=== PATIENT | male | born 1940 | race African-American/Black ===

== ENCOUNTER 2018-11-05 11:59 | Emergency (ER) | payer MEDICARE, MEDICAID ==
[~2018-11-05] VITALS: Ht 180.3 cm; Wt 53.0 kg
[2018-11-05] MEDS ORDERED: SODIUM CHLORIDE 0.9% 500 ML IV ONE (14:30)
[2018-11-05 14:59] LABS: BASOPHILS % 0.3 % (0.0-2.0); EOSINOPHILS % 1.8 % (0.0-5.0); HEMATOCRIT. 37.4 % (42.0-52.0); HEMOGLOBIN. 12.4 g/dL (14.0-18.0); LYMPHOCYTES % 27.6 % (20.0-50.0); MEAN CORPUSCULAR HEMOGLOBIN 29.8 pg (28.0-32.0); MEAN CORPUSCULAR VOLUME 89.4 fL (80.0-94.0); MEAN PLATELET VOLUME 8.1 fl (7.4-10.4); NEUTROPHILS % 59.3 % (40.0-76.0); PLATELET 203 x1000/uL (130-400); RED BLOOD CELL COUNT 4.18 mill/uL (4.7-6.1); RED CELL DISTRIBUTION WIDTH 12.3 % (11.6-14.6)
[2018-11-05 15:03] LABS: CHLORIDE 106 mEq/L (98-107)
[2018-11-05 19:15] VITALS: BP 140/68
== END 2018-11-05 19:57 | disposition home or self-care (01) ==
LOC: ER 11:59
DX: K59.00 Constipation, unspecified (principal); R53.1 Weakness; I10 Essential (primary) hypertension; Z90.89 Acquired absence of other organs
CPT/HCPCS: 36415; 71045; 74021; 80053; 83690; 83880; 84484; 85025; 93005; 99284; J7040

== ENCOUNTER 2022-02-26 10:18 | Inpatient (IN) | payer MEDICARE, MEDICAID ==
[~2022-02-26] VITALS: Ht 180.3 cm; Wt 53.7 kg
[2022-02-26] MEDS ORDERED: DEXL60CA6 PO (10:29)
[2022-02-26] MEDS ORDERED: DILT240C96 PO (10:29)
[2022-02-26] MEDS ORDERED: MEGE40TA5 PO (10:29)
[2022-02-26] MEDS ORDERED: LINA145C PO (10:29)
[2022-02-26] MEDS ORDERED: SIMV10TA97 PO (10:29)
[2022-02-26] MEDS ORDERED: ALBUTEROL (10:29)
[2022-02-26] MEDS ORDERED: CLON0.1T PO (10:29)
[2022-02-26] MEDS ORDERED: METH-817 MT (10:29)
[2022-02-26] MEDS ORDERED: LANS30CA55 PO (10:29)
[2022-02-26] MEDS ORDERED: OMEP20CA14 PO (10:29)
[2022-02-26] MEDS ORDERED: IBUPROFEN 600MG TABLET PO STA (10:38)
[2022-02-26 11:29] LABS: CHLORIDE 103 mEq/L (98-107)
[2022-02-26 11:35] LABS: BASOPHILS % 0.7 % (0.0-2.0); EOSINOPHILS % 3.6 % (0.0-5.0); HEMATOCRIT. 32.2 % (42.0-52.0); HEMOGLOBIN. 10.3 g/dL (14.0-18.0); LYMPHOCYTES % 20.1 % (20.0-50.0); MEAN CORPUSCULAR HEMOGLOBIN 28.1 pg (28.0-32.0); MEAN PLATELET VOLUME 9.5 fl (7.4-10.4); MONOCYTES % 9.6 % (2.0-8.0); PLATELET 217 x1000/uL (130-400); RED BLOOD CELL COUNT 3.66 mill/uL (4.7-6.1); RED CELL DISTRIBUTION WIDTH 14.4 % (11.6-14.6)
[2022-02-26 11:42] LABS: CLARITY URINE CLEAR (CLEAR); COLOR URINE DARK YELLOW (YELLOW); KETONES URINE TRACE (NEGATIVE); LEUKOCYTE ESTERASE URINE TRACE (NEGATIVE); NITRITE URINE NEGATIVE (NEGATIVE); OCCULT BLOOD URINE NEGATIVE (NEGATIVE); PROTEIN URINE 2+ (NEGATIVE); SPECIFIC GRAVITY URINE 1.024 (1.005-1.030)
[2022-02-26] MEDS ORDERED: TRAMADOL 50MG TABLET PO STA (14:50)
[2022-02-26] MEDS ORDERED: IOHEXOL-300 100 ML BOTTLE ONE (16:59)
[2022-02-26 18:38] LABS: HEPATITIS B SURFACE ANTIGEN NEGATIVE
[2022-02-26] MEDS ORDERED: NALOXONE HCL 0.4MG/ML VIAL IV PRN (19:00)
[2022-02-26] MEDS ORDERED: ONDANSETRON HCL 4MG/2ML INJ IV PRN (19:00)
[2022-02-26] MEDS: AMLODIPINE 10MG TABLET PO SCH (19:00)
[2022-02-26 20:00] VITALS: BP 130/90
[2022-02-27] VITALS: BP 144/65
[2022-02-27] MEDS: HYDROCODONE/ACETAMINOPHEN 10/325MG TABLET PO PRN ×2 (01:50→09:33)
[2022-02-27 04:00] VITALS: BP 127/56
[2022-02-27 08:00] VITALS: BP 134/63
[2022-02-27] MEDS ORDERED: CEFTRIAXONE 1 G PREMIX 50 ML IV SCH (09:00)
[2022-02-27] MEDS ORDERED: ACETAMINOPHEN 325MG TABLET PO PRN (09:00)
[2022-02-27] MEDS ORDERED: ONDANSETRON HCL 4MG/2ML INJ IV PRN (09:00)
[2022-02-27] MEDS ORDERED: FAMOTIDINE 20MG TABLET PO SCH (09:00)
[2022-02-27] MEDS ORDERED: MAGNESIUM/ALUMINUM HYDROXIDE/SIMETHICONE 30ML UDC PO PRN (09:00)
[2022-02-27] MEDS ORDERED: CLONIDINE 0.1MG TABLET PO PRN (09:00)
[2022-02-27] MEDS: AMLODIPINE 10MG TABLET PO SCH (09:24)
[2022-02-27] MEDS ORDERED: ENOXAPARIN 40MG/0.4ML SYR SUBCUT SCH (10:00)
[2022-02-27 12:00] VITALS: BP 101/59
[2022-02-27] MEDS: METHADONE HCL 10MG TABLET PO SCH (14:03)
[2022-02-27] MEDS: CEFTRIAXONE 1,000 MG in DEXTROSE 5% WATER 50 ML IV SCH (14:23)
[2022-02-27] MEDS ORDERED: BISACODYL 5MG TABLET PO NR (15:30)
[2022-02-27 16:00] VITALS: BP 93/66
[2022-02-27 18:27] LABS: INR 1.3; PROTHROMBIN TIME 13.6 sec (9.6-11.0)
[2022-02-27 18:38] LABS: CHLORIDE 104 mEq/L (98-107)
[2022-02-27] MEDS ORDERED: SENNOSIDES/DOCUSATE SOD 8.6/50MG TABLET PO SCH (21:00)
[2022-02-28] VITALS (18 sets, daily range): BP systolic 106–168; BP diastolic 51–77
[2022-02-28] MEDS: OMEPRAZOLE 20MG CAPSULE EXTENDED RELEASE PO SCH (07:20)
[2022-02-28 07:35] LABS: BASOPHILS % 0.6 % (0.0-2.0); EOSINOPHILS % 0.6 % (0.0-5.0); HEMATOCRIT. 29.9 % (42.0-52.0); HEMOGLOBIN. 9.7 g/dL (14.0-18.0); LYMPHOCYTES % 16.4 % (20.0-50.0); MEAN CORPUSCULAR HEMOGLOBIN 28.4 pg (28.0-32.0); MEAN CORPUSCULAR VOLUME 87.6 fL (80.0-94.0); MEAN PLATELET VOLUME 9.9 fl (7.4-10.4); NEUTROPHILS % 70.4 % (40.0-76.0); PLATELET 202 x1000/uL (130-400); RED BLOOD CELL COUNT 3.41 mill/uL (4.7-6.1); RED CELL DISTRIBUTION WIDTH 14.6 % (11.6-14.6)
[2022-02-28] MEDS ORDERED: BISACODYL 5MG TABLET PO NR (09:00)
[2022-02-28] MEDS ORDERED: NA PHOS,M-B/NA PHOS,DI-BA ENEMA 118ML PR NR (09:00)
[2022-02-28 09:46] LABS: FERRITIN 1431 ng/mL (22-322)
[2022-02-28] MEDS ORDERED: LIDOCAINE HCL/PF 1% 10 MG/ML 5ML VIAL ONE (10:36)
[2022-02-28] MEDS ORDERED: SODIUM BICARBONATE 4% (2.4MEQ) 5ML VIAL IV ONE (10:36)
[2022-02-28] MEDS ORDERED: FENTANYL CITRATE/PF 50MCG/ML 2ML VIAL ONE (10:36)
[2022-02-28 10:40] LABS: CHLORIDE 106 mEq/L (98-107)
[2022-02-28 10:41] LABS: INR 1.2; PROTHROMBIN TIME 13.1 sec (9.6-11.0)
[2022-02-28 10:44] LABS: VITAMIN B12 SERUM >2000 pg/mL pg/mL (211-911)
[2022-02-28 11:19] LABS: HDL CHOLESTEROL 11 mg/dL (40-59); LDL CHOLESTEROL 61 mg/dL (5-100); PHOSPHORUS 3.1 mg/dL (2.5-4.9); T4 FREE 1.36 ng/dL (0.76-1.46); TOTAL IRON BINDING CAPACITY 490 ug/dL (250-450)
[2022-02-28] MEDS ORDERED: FENTANYL CITRATE/PF 50MCG/ML 2ML VIAL IV ONE (12:15)
[2022-02-28] MEDS ORDERED: FENTANYL CITRATE/PF 50MCG/ML 2ML VIAL IV NR (12:30)
[2022-02-28] MEDS: AMLODIPINE 10MG TABLET PO SCH (13:01)
[2022-02-28] MEDS: CEFTRIAXONE 1,000 MG in DEXTROSE 5% WATER 50 ML IV SCH (13:04)
[2022-02-28] MEDS: METHADONE HCL 10MG TABLET PO SCH (13:04)
[2022-02-28 17:55] LABS: HEMATOCRIT 28.7 % (42.0-52.0); HEMOGLOBIN 9.3 g/dL (14.0-18.0)
[2022-02-28] MEDS: ENOXAPARIN 40MG/0.4ML SYR SUBCUT SCH (19:28)
[2022-03-01] VITALS: BP 139/71
[2022-03-01 04:00] VITALS: BP 134/71
[2022-03-01 08:00] VITALS: BP 151/77
[2022-03-01] MEDS: OMEPRAZOLE 20MG CAPSULE EXTENDED RELEASE PO SCH (09:08)
[2022-03-01] MEDS: AMLODIPINE 10MG TABLET PO SCH (09:08)
[2022-03-01] MEDS: METHADONE HCL 10MG TABLET PO SCH (09:09)
[2022-03-01] MEDS: ENOXAPARIN 40MG/0.4ML SYR SUBCUT SCH (09:10)
[2022-03-01 11:46] LABS: BASOPHILS % 0.7 % (0.0-2.0); EOSINOPHILS % 0.5 % (0.0-5.0); HEMATOCRIT. 31.1 % (42.0-52.0); MEAN CORPUSCULAR HEMOGLOBIN 28.3 pg (28.0-32.0); MEAN CORPUSCULAR VOLUME 87.6 fL (80.0-94.0); MEAN PLATELET VOLUME 9.8 fl (7.4-10.4); MONOCYTES % 12.1 % (2.0-8.0); NEUTROPHILS % 68.7 % (40.0-76.0); PLATELET 213 x1000/uL (130-400); RED BLOOD CELL COUNT 3.55 mill/uL (4.7-6.1); RED CELL DISTRIBUTION WIDTH 14.5 % (11.6-14.6)
[2022-03-01 11:50] LABS: CHLORIDE 105 mEq/L (98-107)
[2022-03-01 12:00] VITALS: BP 114/59
[2022-03-01] MEDS: CEFTRIAXONE 1,000 MG in DEXTROSE 5% WATER 50 ML IV SCH (12:03)
[2022-03-01] MEDS ORDERED: POTASSIUM-SODIUM PHOSPHATE POWDER PACKET PO NR (13:30)
[2022-03-01 16:00] VITALS: BP 135/83
[2022-03-01 20:00] VITALS: BP 130/65
[2022-03-01] MEDS: MIRTAZAPINE 15MG TABLET PO SCH (22:50)
[2022-03-02] VITALS: BP 132/67
[2022-03-02 04:00] VITALS: BP 132/66
[2022-03-02] MEDS: OMEPRAZOLE 20MG CAPSULE EXTENDED RELEASE PO SCH (06:15)
[2022-03-02 08:00] VITALS: BP 146/62
[2022-03-02 08:21] LABS: BASOPHILS % 0.6 % (0.0-2.0); EOSINOPHILS % 0.8 % (0.0-5.0); HEMATOCRIT. 31.8 % (42.0-52.0); HEMOGLOBIN. 10.3 g/dL (14.0-18.0); LYMPHOCYTES % 18.7 % (20.0-50.0); MEAN CORPUSCULAR HEMOGLOBIN 28.4 pg (28.0-32.0); MEAN CORPUSCULAR VOLUME 87.4 fL (80.0-94.0); MEAN PLATELET VOLUME 9.2 fl (7.4-10.4); MONOCYTES % 9.3 % (2.0-8.0); NEUTROPHILS % 70.6 % (40.0-76.0); PLATELET 211 x1000/uL (130-400); RED BLOOD CELL COUNT 3.63 mill/uL (4.7-6.1); RED CELL DISTRIBUTION WIDTH 14.1 % (11.6-14.6)
[2022-03-02] MEDS: METHADONE HCL 10MG TABLET PO SCH (08:36)
[2022-03-02] MEDS: AMLODIPINE 10MG TABLET PO SCH (08:36)
[2022-03-02] MEDS: ENOXAPARIN 40MG/0.4ML SYR SUBCUT SCH (08:36)
[2022-03-02] MEDS: CEFTRIAXONE 1,000 MG in DEXTROSE 5% WATER 50 ML IV SCH (10:14)
[2022-03-02 10:19] LABS: CHLORIDE 107 mEq/L (98-107)
[2022-03-02 12:32] VITALS: BP 143/87
[2022-03-02] MEDS ORDERED: POTASSIUM PHOS,M-BASIC-D-BASIC 10 MMOL in DEXT 5% WATER 246.6667 ML IV NR (13:00)
[2022-03-02 16:00] VITALS: BP 127/87
[2022-03-02 20:00] VITALS: BP 139/84
[2022-03-02] MEDS: MIRTAZAPINE 15MG TABLET PO SCH (21:15)
[2022-03-03] VITALS: BP 139/67
[2022-03-03 04:02] VITALS: BP 141/80
[2022-03-03] MEDS: OMEPRAZOLE 20MG CAPSULE EXTENDED RELEASE PO SCH (05:40)
[2022-03-03 08:00] VITALS: BP 134/75
[2022-03-03 08:01] LABS: BASOPHILS % 0.8 % (0.0-2.0); EOSINOPHILS % 0.8 % (0.0-5.0); HEMATOCRIT. 32.2 % (42.0-52.0); HEMOGLOBIN. 10.6 g/dL (14.0-18.0); MEAN CORPUSCULAR HEMOGLOBIN 28.7 pg (28.0-32.0); MEAN CORPUSCULAR VOLUME 87.5 fL (80.0-94.0); MEAN PLATELET VOLUME 9.4 fl (7.4-10.4); MONOCYTES % 10.7 % (2.0-8.0); NEUTROPHILS % 71.7 % (40.0-76.0); PLATELET 223 x1000/uL (130-400); RED BLOOD CELL COUNT 3.68 mill/uL (4.7-6.1); RED CELL DISTRIBUTION WIDTH 14.4 % (11.6-14.6)
[2022-03-03] MEDS: ENOXAPARIN 40MG/0.4ML SYR SUBCUT SCH (10:06)
[2022-03-03] MEDS: METHADONE HCL 10MG TABLET PO SCH (10:07)
[2022-03-03] MEDS: AMLODIPINE 10MG TABLET PO SCH (10:07)
[2022-03-03] MEDS: CEFTRIAXONE 1,000 MG in DEXTROSE 5% WATER 50 ML IV SCH (10:07)
[2022-03-03 10:58] LABS: CHLORIDE 104 mEq/L (98-107)
[2022-03-03 11:02] LABS: PHOSPHORUS 2.1 mg/dL (2.5-4.9)
[2022-03-03 12:00] VITALS: BP 125/66
[2022-03-03 13:03] VITALS: BP 134/75
[2022-03-03 16:00] VITALS: BP 120/69
== END 2022-03-03 17:55 | disposition home or self-care (01) | DRG 436 ==
LOC: ER 10:18 → EDBEDREQ 13:32 → 6EST 16:04 → EDBEDREQTM 16:13 → EDBEDREQ 16:13 → 6EST 17:27
PROVIDERS: ADMIT Internal Medicine; ATTEND Internal Medicine Nephrology
PROC: 0FB03ZX Excision of Liver, Percutaneous Approach, Diagnostic (ICD-10-PCS; principal; 2022-02-28)
DX: C78.7 Secondary malignant neoplasm of liver and intrahepatic bile duct (principal); E44.0 Moderate protein-calorie malnutrition; F11.20 Opioid dependence, uncomplicated; Z68.1 Body mass index [BMI] 19.9 or less, adult; N39.0 Urinary tract infection, site not specified; D63.1 Anemia in chronic kidney disease; M51.36 Other intervertebral disc degeneration, lumbar region; M47.816 Spondylosis without myelopathy or radiculopathy, lumbar region; E78.5 Hyperlipidemia, unspecified; E80.6 Other disorders of bilirubin metabolism; K59.09 Other constipation; R63.0 Anorexia; R74.01 Elevation of levels of liver transaminase levels; K82.8 Other specified diseases of gallbladder; I12.9 Hypertensive chronic kidney disease with stage 1 through stage 4 chronic kidney disease, or unspecified chronic kidney disease; N18.9 Chronic kidney disease, unspecified; Z87.891 Personal history of nicotine dependence; B19.20 Unspecified viral hepatitis C without hepatic coma
CPT/HCPCS: 36415; 74176; 74177; 76700; 76942; 80048; 80053; 80061; 80076; 81003; 82105; 82140; 82248; 82378; 82607; 82728; 82746; 83540; 83550; 83735; 84100; 84439; 84443; 84484; 85014; 85018; 85025; 85044; 86705; 86709; 86803; 87340; 87426; 88307; 93005; 93970; 97162; 97166; 99285; J0696; J1650; J2405; J3010; J3490; J7060; Q9967

== ENCOUNTER 2022-04-13 07:40 | Inpatient (IN) | payer MEDICARE, MEDICAID ==
[~2022-04-13] VITALS: Ht 172.7 cm; Wt 61.7 kg
[~2022-04-13 07:40] MED LIST: ALBUTEROL; CLON0.1T PO; DEXL60CA6 PO; DILT240C96 PO; LANS30CA55 PO; LINA145C PO; MEGE40TA5 PO; METH-817 MT; OMEP20CA14 PO; SIMV10TA97 PO
[2022-04-13 08:54] LABS: HEMATOCRIT. 23.7 % (42.0-52.0); MEAN CORPUSCULAR HEMOGLOBIN 30.4 pg (28.0-32.0); MEAN CORPUSCULAR VOLUME 102.3 fL (80.0-94.0); RED BLOOD CELL COUNT 2.31 mill/uL (4.7-6.1); RED CELL DISTRIBUTION WIDTH 21.2 % (11.6-14.6)
[2022-04-13 09:13] LABS: CHLORIDE 98 mEq/L (98-107)
[2022-04-13] MEDS ORDERED: SODIUM BICARBONATE 8.4% 1 MEQ/ML 50ML SYR IV ONE ×2 (09:45→12:00)
[2022-04-13] MEDS ORDERED: INSULIN REGULAR (HUMULIN R) 300UNITS/3ML VIAL IV ONE ×2 (09:45→12:00)
[2022-04-13] MEDS ORDERED: DEXTROSE 50% WATER 50ML SYRINGE IV ONE ×2 (09:45→12:00)
[2022-04-13] MEDS ORDERED: CALCIUM GLUCONATE 1,000 MG in DEXT 5% WATER 100 ML IV ONE ×2 (09:45→12:00)
[2022-04-13 10:05] LABS: NUCLEATED RED BLOOD CELLS 1 /100 WBC; PLATELET ESTIMATE NORMAL
[2022-04-13 10:06] LABS: MEAN PLATELET VOLUME 9.3 fl (7.4-10.4); PLATELET 242 x1000/uL (130-400)
[2022-04-13] MEDS ORDERED: SODIUM BICARBONATE 8.4% 1 MEQ/ML 50ML SYR IV NR ×2 (10:15→15:30)
[2022-04-13] MEDS ORDERED: SODIUM CHLORIDE 0.9% 1,000 ML IV ONE ×2 (11:45)
[2022-04-13] MEDS ORDERED: CALCIUM GLUCONATE 1GM PREMIX 50 ML IV NR (12:15)
[2022-04-13] MEDS ORDERED: NOREPINEPHRINE 8 MG in DEXT 5% WATER 242 ML IV STA ×2 (15:18→15:24)
[2022-04-13] MEDS ORDERED: NOREPINEPHRINE 8MG/250ML PMX 250 ML IV ONE ×2 (15:30)
[2022-04-13 15:59] LABS: BG BASE EXCESS -17.7 mmol/L (-2.0-2.0); BG CARBOXYHEMOGLOBIN 2.1 % (0.5-1.5); BG DEOXYHEMOGLOBIN 0.3 % (0.0-5.0); BG HCO3 ACT 12.3 mmol/L (22.0-26.0); BG METHEMOGLOBIN 0.6 % (0.0-1.5); BG OXYGEN SATURATION 99.7 % (92.0-98.5); BG PH 6.982 (7.350-7.450); BG PO2 262.5 mmHg (75.0-100.0); BG SAMPLE SITE RIGHT BRACHIAL; BG TOTAL HEMOGLOBIN 5.9 g/dL (12.0-18.0); BG VENT MODE VENT - AC
[2022-04-13] MEDS: SODIUM BICARBONATE 150 MEQ in DEXTROSE 5% WATER 1,000 ML IV SCH ×2 (16:00→17:51)
[2022-04-13] MEDS ORDERED: MIDAZOLAM HCL 100 MG in DEXT 5% WATER 80 ML IV ONE ×4 (16:30)
[2022-04-13] MEDS ORDERED: MIDAZOLAM HCL 2 MG/2 ML VIAL IV ONE (16:30)
[2022-04-13] MEDS ORDERED: IPRATROPIUM/ALBUTEROL 0.5-3(2.5)MG/3ML NEB HHN PRN (16:45)
[2022-04-13 16:47] LABS: PARTIAL THROMBOPLASTIN TIME 47.4 sec (23.4-31.0); PROTHROMBIN TIME 41.1 sec (9.6-11.0)
[2022-04-13] MEDS ORDERED: VASOPRESSIN 20 UNIT in SODIUM CHLORIDE 0.9% 99 ML IV PRN (17:00)
[2022-04-13] MEDS ORDERED: ALBUMIN HUMAN 12.5GM/50ML (25%) IV NR (17:00)
[2022-04-13 17:14] LABS: INR 4.3
[2022-04-13 19:25] LABS: MEAN CORPUSCULAR HEMOGLOBIN 29.9 pg (28.0-32.0); MEAN CORPUSCULAR VOLUME 101.9 fL (80.0-94.0); PLATELET 136 x1000/uL (130-400); RED BLOOD CELL COUNT 1.75 mill/uL (4.7-6.1)
[2022-04-13 19:32] LABS: CHLORIDE 102 mEq/L (98-107)
[2022-04-13 19:36] LABS: HEMATOCRIT 17.9 % (42.0-52.0); HEMOGLOBIN 5.2 g/dL (14.0-18.0)
[2022-04-13] MEDS ORDERED: NOREPINEPHRINE 8 MG in DEXTROSE 5% WATER 250 ML IV PRN (20:00)
[2022-04-13] MEDS ORDERED: DEXTROSE 50% WATER 50ML SYRINGE IV NR (22:00)
[2022-04-13] MEDS ORDERED: SODIUM POLYSTYRENE SULFONATE 15 G/60 ML BOT PO NR (22:00)
[2022-04-13] MEDS ORDERED: CALCIUM CHLORIDE 1GM/10ML SYR IV NR (22:00)
[2022-04-13] MEDS ORDERED: INSULIN REGULAR (HUMULIN R) 300UNITS/3ML VIAL IV NR (22:00)
[2022-04-14] VITALS (48 sets, daily range): BP systolic 53–110; BP diastolic 32–57
[2022-04-14] MEDS: IPRATROPIUM/ALBUTEROL 0.5-3(2.5)MG/3ML NEB HHN SCH ×2 (01:47→10:12)
[2022-04-14] MEDS ORDERED: ONDANSETRON HCL 4MG/2ML INJ IV PRN (07:15)
[2022-04-14] MEDS ORDERED: MORPHINE SULFATE 2 MG/ML CPJ (NOT FOR IM USE) IV PRN (07:15)
[2022-04-14] MEDS ORDERED: ACETAMINOPHEN 650MG SUPP PR PRN (07:15)
[2022-04-14] MEDS ORDERED: NALOXONE HCL 0.4MG/ML VIAL IV PRN (07:30)
[2022-04-14 08:05] LABS: MEAN CORPUSCULAR HEMOGLOBIN 30.1 pg (28.0-32.0); RED CELL DISTRIBUTION WIDTH 20.4 % (11.6-14.6)
[2022-04-14 08:11] LABS: HEMOGLOBIN 6.3 g/dL (14.0-18.0)
[2022-04-14] MEDS ORDERED: VANCOMYCIN 1G PREMIX 200 ML IV NR (08:30)
[2022-04-14] MEDS ORDERED: PHENYLEPHRINE 100 MG in DEXT 5% WATER 240 ML IV PRN (09:15)
[2022-04-14 09:18] LABS: BG BASE EXCESS -17.3 mmol/L (-2.0-2.0); BG CARBOXYHEMOGLOBIN 2.5 % (0.5-1.5); BG DEOXYHEMOGLOBIN 8.5 % (0.0-5.0); BG FRACTION INSPIRED OXYGEN 40; BG HCO3 ACT 9.3 mmol/L (22.0-26.0); BG METHEMOGLOBIN 0.1 % (0.0-1.5); BG OXYGEN SATURATION 91.3 % (92.0-98.5); BG OXYHEMOGLOBIN 88.9 % (94.0-97.0); BG PCO2 24.5 mmHg (35.0-45.0); BG PH 7.195 (7.350-7.450); BG PO2 74.1 mmHg (75.0-100.0); BG SAMPLE SITE RIGHT RADIAL; BG TOTAL HEMOGLOBIN 6.9 g/dL (12.0-18.0); BG VENT MODE VENT - AC
[2022-04-14] MEDS ORDERED: SODIUM BICARBONATE 8.4% 1 MEQ/ML 50ML SYR IV NR ×2 (09:30→12:15)
[2022-04-14] MEDS ORDERED: SODIUM BICARBONATE 150 MEQ in DEXTROSE 5% WATER 1,000 ML IV SCH (09:30)
[2022-04-14] MEDS ORDERED: PIPERACILLIN/TAZOBACTAM 3.375 G in DEXTROSE 5% WATER 50 ML IV SCH (10:00)
[2022-04-14] MEDS ORDERED: SODIUM BICARBONATE 100 MEQ in DEXTROSE 5% WATER 1,000 ML IV SCH (10:30)
[2022-04-14 11:25] LABS: MEAN CORPUSCULAR HEMOGLOBIN 30.6 pg (28.0-32.0); MEAN CORPUSCULAR VOLUME 98.6 fL (80.0-94.0); RED BLOOD CELL COUNT 1.92 mill/uL (4.7-6.1); RED CELL DISTRIBUTION WIDTH 19.5 % (11.6-14.6)
[2022-04-14 11:30] LABS: HEMATOCRIT. 18.9 % (42.0-52.0); HEMOGLOBIN. 5.9 g/dL (14.0-18.0)
[2022-04-14 11:35] LABS: CHLORIDE 94 mEq/L (98-107)
[2022-04-14 11:57] LABS: PLATELET 83 x1000/uL (130-400)
[2022-04-14 12:01] LABS: PHOSPHORUS 11.7 mg/dL (2.5-4.9)
[2022-04-14] MEDS ORDERED: SODIUM POLYSTYRENE SULFONATE 15 G/60 ML BOT PO NR (12:15)
[2022-04-14] MEDS ORDERED: DEXTROSE 50% WATER 50ML SYRINGE IV NR (12:15)
[2022-04-14] MEDS ORDERED: INSULIN REGULAR (HUMULIN R) 300UNITS/3ML VIAL IV NR (12:15)
[2022-04-14] MEDS ORDERED: CALCIUM GLUCONATE 1GM PREMIX 50 ML IV NR (13:30)
[2022-04-14 13:34] LABS: PLATELET ESTIMATE DECREASED
[2022-04-14 13:35] LABS: MEAN PLATELET VOLUME 9.4 fl (7.4-10.4); PLATELET 63 x1000/uL (130-400)
[2022-04-14] MEDS ORDERED: PANTOPRAZOLE SODIUM 40 MG/VIAL IV SCH (14:00)
[2022-04-14] MEDS ORDERED: MORPHINE SULFATE 250 MG in DEXT 5% WATER 225 ML IV SCH (14:30)
== END 2022-04-14 15:16 | DRG 208 ==
LOC: ER 08:04 → MICUSO 10:34 → EDBEDREQTM 13:53 → EDBEDREQSVC 13:53 → EDBEDREQ 13:53 → EDBEDREQTM 18:16 → MICUSO 04-14 06:10
PROVIDERS: ADMIT Internal Medicine Nephrology; ATTEND Internal Medicine Nephrology
PROC: 5A1935Z Respiratory Ventilation, Less than 24 Consecutive Hours (ICD-10-PCS; principal; 2022-04-13)
PROC: 0BH17EZ Insertion of Endotracheal Airway into Trachea, Via Natural or Artificial Opening (ICD-10-PCS; 2022-04-13)
PROC: 5A12012 Performance of Cardiac Output, Single, Manual (ICD-10-PCS; 2022-04-13)
PROC: 02HV33Z Insertion of Infusion Device into Superior Vena Cava, Percutaneous Approach (ICD-10-PCS; 2022-04-13)
PROC: B548ZZA Ultrasonography of Superior Vena Cava, Guidance (ICD-10-PCS; 2022-04-13)
PROC: 30233N1 Transfusion of Nonautologous Red Blood Cells into Peripheral Vein, Percutaneous Approach (ICD-10-PCS; 2022-04-14)
DX: J96.00 Acute respiratory failure, unspecified whether with hypoxia or hypercapnia (principal); E43 Unspecified severe protein-calorie malnutrition; N17.0 Acute kidney failure with tubular necrosis; K72.00 Acute and subacute hepatic failure without coma; E87.1 Hypo-osmolality and hyponatremia; J93.9 Pneumothorax, unspecified; E87.20 Acidosis, unspecified; C22.9 Malignant neoplasm of liver, not specified as primary or secondary; C79.9 Secondary malignant neoplasm of unspecified site; I46.9 Cardiac arrest, cause unspecified; Z20.822 Contact with and (suspected) exposure to COVID-19; Z66 Do not resuscitate; E87.5 Hyperkalemia; E78.5 Hyperlipidemia, unspecified; K74.60 Unspecified cirrhosis of liver; I11.0 Hypertensive heart disease with heart failure; R74.01 Elevation of levels of liver transaminase levels; E83.51 Hypocalcemia; E83.41 Hypermagnesemia; E83.39 Other disorders of phosphorus metabolism; D53.9 Nutritional anemia, unspecified; D69.6 Thrombocytopenia, unspecified; E88.09 Other disorders of plasma-protein metabolism, not elsewhere classified; Z79.899 Other long term (current) drug therapy; Z68.20 Body mass index [BMI] 20.0-20.9, adult; Z51.5 Encounter for palliative care; Z85.05 Personal history of malignant neoplasm of liver
CPT/HCPCS: 31500; 36415; 36556; 36600; 71045; 77001; 80053; 82375; 82805; 82962; 83735; 84100; 85025; 85027; 86850; 86900; 86920; 87426; 93306; 99291; A6261; C1752; C9803; J0610; J1815; J2250; J2270; J2543; J3370; J3490; J7030; J7060; J7070; P9016; P9047